=== PATIENT | female | born 1980 | race Caucasian/White ===

== ENCOUNTER 2017-01-22 07:12 | Day surgery (SDC) | payer OTHER ==
[~2017-01-22 07:12] MED LIST: Lactated Ringers 1,000 ML IV SCH; Sodium Chloride 0.9% 10 ML Syringe FLUSH PRN
[2017-01-22] MEDS ORDERED: fentaNYL 250 MCG/5 ML SDV ONE ×2 (07:30→08:11)
[2017-01-22] MEDS ORDERED: Midazolam 1 MG/ML 2 ML SDV ONE ×2 (07:30→08:11)
[2017-01-22] MEDS ORDERED: Propofol 200 MG/20 ML SDV ONE ×2 (07:31→08:11)
[2017-01-22] MEDS ORDERED: ceFAZolin 1 GM Vial ONE (08:11)
[2017-01-22] MEDS ORDERED: Ketorolac 30 MG/ML SDV ONE (08:11)
[2017-01-22] MEDS ORDERED: Ondansetron 4 MG/2 ML SDV ONE (08:11)
--- NOTE | 2017-01-22 08:17 | PCM.PN ---
- General Info Date of Service: 01/22/17 - Review of Systems Systems Review Comment:: 36-year-old female here for repair of umbilical hernia. She is medically stable to proceed with no recent significant change in her health status. The site of the hernia is confirmed with the patient and marked. I again discussed the proposed operative procedure with the patient. Expectations and anticipated postop restrictions or reviewed. She appears to understand and agrees to proceed accepting risks. - Patient Data Vitals - most recent: Last Vital Signs Temp 98.4 F 01/22/17 07:42 Pulse 62 01/22/17 07:42 Resp 20 01/22/17 07:42 BP 120/75 01/22/17 07:42 Pulse Ox 100 01/22/17 07:42 Weight - most recent: 47.627 kg Med Orders - Current: Current Medications Lactated Ringer's (Ringers, Lactated) 1,000 mls @ 125 mls/hr IV ASDIRECTED JACKY Last Admin: 01/22/17 07:50 Dose: 125 mls/hr Sodium Chloride (Saline Flush) 10 ml FLUSH ASDIRECTED PRN PRN Reason: Keep Vein Open Discontinued Medications Fentanyl (Sublimaze) Confirm Administered Dose 250 mcg .ROUTE .STK-MED ONE Stop: 01/22/17 07:31 Midazolam HCl (Versed 1 Mg/Ml) Confirm Administered Dose 2 mg .ROUTE .STK-MED ONE Stop: 01/22/17 07:31 Propofol (Diprivan 20 Ml) Confirm Administered Dose 600 mg .ROUTE .STK-MED ONE Stop: 01/22/17 07:32 - Problem List Review Problem List Initiated/Reviewed/Updated: Yes - My Orders Last 24 Hours: My Active Orders 01/22/17 07:00 Patient Status [ADT] Routine Peripheral IV Care [RC] . DIRECTED Verify Patient Consent Obtain [RC] ASDIRECTED Lactated Ringers [Ringers, Lactated] 1,000 ml IV ASDIRECTED Sodium Chloride 0.9% [Saline Flush] 10 ml FLUSH ASDIRECTED PRN Peripheral IV Insertion Adult [OM.PC] Routine - Assessment Assessment:: Umbilical Hernia - Plan Plan:: Umbilical Hernia Repair
[2017-01-22] MEDS ORDERED: Lidocaine 2% with EPINEPHrine 1:100,000 20 ML MDV INFILT ONE (08:29)
--- NOTE | 2017-01-22 09:26 | PCM.OPNOTE ---
- General Post-Op/Procedure Note Date of Surgery/Procedure: 01/22/17 Operative Procedure(s): Repair of umbilical hernia Findings: Small umbilical hernia with preperitoneal fat protruding through the defect Pre Op Diagnosis: Umbilical hernia Post-Op Diagnosis: Same Anesthesia Technique: Local, MAC Primary Surgeon: Ant Guzman Pathology: Umbilical hernia sac and contents Output, Urine Amount: 0 EBL in mLs: 10 Complications: None Condition: Good Free Text/Narrative:: Intake & Output 01/21/17 01/22/17 01/22/17 22:59 06:59 14:59 Intake Total 900 Balance 900
[2017-01-22 09:31] VITALS: BP 100/69
--- NOTE | 2017-01-22 11:45 | OR ---
Date of Procedure: 01/22/2017 PREOPERATIVE DIAGNOSIS: Umbilical hernia. POSTOPERATIVE DIAGNOSIS: Umbilical hernia. OPERATION PERFORMED: Umbilical herniorrhaphy. INDICATIONS FOR SURGERY: This 36-year-old female, who has developed an umbilical hernia which is increasingly symptomatic for her. She comes for elective repair. FINDINGS: At the superior border of the umbilicus, the patient has a fascial defect approximately 2 cm in size. Through this defect is protruding some preperitoneal fat. The surrounding fascia appears of good quality. PROCEDURE: The patient is taken to the operating room. She was given intravenous sedation and her abdomen was sterilely prepped with Betadine and draped. The periumbilical region was infiltrated with Xylocaine and Marcaine mix. A curvilinear incision is then made along the superior border of the umbilicus. Dissection proceeded down onto the underlying hernia sac which was carefully from the surrounding subcutaneous tissue and then sharply dissected free from the skin of the umbilicus which is dissected off the underlying fascia to allow full fascial exposure. The contents of the hernia were then examined and with no bowel being seen involved in the hernia, the hernia sac and contents were amputated at the level of the fascia above the clamps with ties of 3-0 Vicryl used to control the vascular pedicles. The remaining tissue was then reduced and the fascial edges were trimmed back to strong tissue with cautery. The fascial edges were then approximated in a transverse orientation with interrupted #1 Prolene using a Smead-Ahn suturing technique. This created a complete and secure closure of the fascial defect. Examination showed no sign of any complication. The wound was then irrigated. The skin of the umbilicus was tacked down to the underlying fascia with interrupted 3-0 Vicryl which was also used to reapproximate the subcutaneous tissue. The skin edges were approximated with a running 4-0 Vicryl subcuticular stitch, Steri-Strips, and benzoin. Antibiotic ointment, a sterile dressing was placed. The patient tolerated the procedure well and was taken from the operating room in satisfactory condition. ESTIMATED BLOOD LOSS: 10 mL. COMPLICATIONS: None. PROGNOSIS: Good. DARLYN Guzman MD /[id number]
== END 2017-01-22 11:14 | disposition home or self-care (01) ==
LOC: LL.SDS 07:12
PROVIDERS: ATTEND Surgery
DX: K42.9 Umbilical hernia without obstruction or gangrene (principal); O16.9 Unspecified maternal hypertension, unspecified trimester; Z88.2 Allergy status to sulfonamides; Z79.899 Other long term (current) drug therapy; Z98.890 Other specified postprocedural states
CPT/HCPCS: 49585; J7120; 00750; J0690; J1885; J2250; J2405; J2704; J3010

== ENCOUNTER 2019-08-17 11:31 | Emergency (ER) | payer BC, OTHER ==
[2019-08-17 12:34] LABS: CHLORIDE,CL 105 mmol/L (98-107); SODIUM,NA 141 mmol/L (136-145)
--- NOTE | 2019-08-17 13:03 | EDM.PDOC ---
ED HPI GENERAL MEDICAL PROBLEM - General Chief Complaint: Cardiovascular Problem Stated Complaint: racing heart, dizziness, increased weakness Time Seen by Provider: 08/17/19 11:52 Source of Information: Reports: Patient, Significant Other History Limitations: Reports: No Limitations - History of Present Illness INITIAL COMMENTS - FREE TEXT/NARRATIVE: Patient brought to ER due to apparent run of tachycardia that lasted several minutes while she was at work. She said heart was racing. Unable to take pulse. No accompanying chest pain/SOB. Did get anxious/tearful at time. Has had similar brief episodes lasting only 5-10 sec for at least the last 7 years. Had to wear event monitor and nothing recorded 7 years ago. No specific trigger for these. Sometimes has mild SOB with episodes. No history of heart issues diagnosed in past. Does have history of frequent headaches. Frequency improved over the last year when she started to increase her daily water intake. Is not on any supplements. Tries to eat healthy. Drinks caffeine. No energy drinks. Reports feeling chronically tired. No change in severity. Appetite is good. No weight changes. Does not report feelings of depression. - Related Data Allergies Allergy/AdvReac Type Severity Reaction Status Date / Time Sulfa (Sulfonamide Allergy Rash Verified 08/17/19 11:38 Antibiotics) Home Meds: Home Meds Acetaminophen [Tylenol Extra Strength] 1,000 mg PO Q4HR PRN 01/21/17 [History] Ibuprofen 200 mg PO ASDIRECTED PRN 01/21/17 [History] Past Medical History HEENT History: Reports: None Cardiovascular History: Reports: Other (See Below) Other Cardiovascular History: Hypertention occurred during Respiratory History: Reports: None Gastrointestinal History: Reports: Chronic Constipation, Hemorrhoids Genitourinary History: Reports: None [employer] History: Reports: , Spontaneous Musculoskeletal History: Reports: Other (See Below) Other Musculoskeletal History: Scoliosis. kyphoscollosis Neurological History: Reports: Headaches, Chronic Psychiatric History: Reports: None Endocrine/Metabolic History: Reports: None Hematologic History: Reports: None Immunologic History: Reports: None Oncologic (Cancer) History: Reports: None Dermatologic History: Reports: None - Past Surgical History Head Surgeries/Procedures: Reports: None Female Surgical History: Reports: Hysterectomy (Patient and think that she had hysterectomy after last .) - History Comment History Comment: Chronic feelings of fatigue Social & Family History - Tobacco Use Smoking Status *Q: Never Smoker Second Hand Smoke Exposure: Yes - Caffeine Use Caffeine Use: Reports: Coffee - Alcohol Use Alcohol Use History: Yes Alcohol Use Frequency: Rarely - Recreational Drug Use Recreational Drug Use: No - Living Situation & Occupation Living situation: Reports: , with Family Occupation: Employed ED ROS GENERAL - Review of Systems Review Of Systems: See Below Constitutional: Reports: Fatigue. Denies: Fever, Chills, Weakness, Diaphoresis , Decreased Appetite, Weight Loss HEENT: Reports: No Symptoms Respiratory: Reports: No Symptoms. Denies: Shortness of Breath Cardiovascular: Reports: Palpitations. Denies: Chest Pain, Dyspnea on Exertion , Edema, Lightheadedness, Syncope GI/Abdominal: Reports: No Symptoms : Reports: No Symptoms Musculoskeletal: Reports: No Symptoms Skin: Reports: No Symptoms Neurological: Reports: No Symptoms Psychiatric: Reports: No Symptoms Hematologic/Lymphatic: Reports: No Symptoms ED EXAM, GENERAL - Physical Exam Exam: See Below Exam Limited By: No Limitations General Appearance: Alert, WD/WN, No Apparent Distress, Anxious Eye Exam: Bilateral Eye: EOMI, PERRL Ears: Normal External Exam Nose: No: Nasal Deformity, Nasal Swelling, Nasal Drainage Throat/Mouth: Normal Lips, Normal Voice, No Airway Compromise Head: Atraumatic, Normocephalic Neck: Normal Inspection, Supple, Non-Tender, Full Range of Motion Respiratory/Chest: No Respiratory Distress, Lungs Clear, Normal Breath Sounds, No Accessory Muscle Use, Chest Non-Tender Cardiovascular: Regular Rate, Rhythm, No Edema, No Murmur GI/Abdominal: Normal Bowel Sounds, Soft, Non-Tender, No Distention (Female) Exam: Deferred Rectal (Female) Exam: Deferred Back Exam: Normal Inspection. No: CVA Tenderness (L), CVA Tenderness (R), Muscle Spasm, Paraspinal Tenderness, Vertebral Tenderness Extremities: Normal Inspection, Normal Range of Motion, Non-Tender, No Pedal Edema, Normal Capillary Refill Neurological: Alert, Oriented, CN II-XII Intact, Normal Cognition, Normal Gait, Normal Reflexes, No Motor/Sensory Deficits Psychiatric: Other (pleasant, somewhat flat affect) Skin Exam: Warm, Dry, Intact, Normal Color EKG INTERPRETATION EKG Date: 08/17/19 Time: 11:59 Rhythm: Other (Sinus rhythm with occasional PVC) Rate (Beats/Min): 72 Lyle: Normal P-Wave: Present QRS: Normal ST-T: Normal QT: Normal Comparison: NA - No Prior EKG Course - Vital Signs Last Recorded V/S: Last Vital Signs Temp 37.4 C 08/17/19 11:39 Pulse 85 08/17/19 11:39 Resp 18 08/17/19 11:39 BP 125/89 08/17/19 11:39 Pulse Ox 99 08/17/19 11:39 - Orders/Labs/Meds Orders: Active Orders 24 hr Category Date Time Status EKG Documentation Completion [RC] ASDIRECTED Care 08/17/19 11:54 Ordered UA W/MICROSCOPIC [URIN] Stat Lab 08/17/19 11:53 Ordered Labs: Laboratory Tests 08/17/19 08/17/19 08/17/19 Range/Units 12:05 12:05 12:05 WBC 8.7 (4.0-10.2) K/uL RBC 3.81 (3.77-5.09) M/uL Hgb 11.3 L (11.7-15.5) g/dL Hct 35.0 (34.0-46.0) % MCV 91.9 (84.0-98.0) fL MCH 29.7 (28.2-33.3) pg MCHC 32.3 (31.7-36.0) g/dL RDW 13.4 (11.2-14.1) % Plt Count 232 (150-350) K/uL Neut % (Auto) 82.6 H (45.0-80.0) % Lymph % (Auto) 12.5 (10.0-50.0) % Braxton % (Auto) 4.5 (2.0-14.0) % Eos % (Auto) 0.2 (0.0-5.0) % Baso % (Auto) 0.2 (0.0-2.0) % Neut # (Auto) 7.16 H (1.40-7.00) K/uL Lymph # (Auto) 1.08 (0.50-3.50) K/uL Braxton # (Auto) 0.39 (0.00-1.00) K/uL Eos # (Auto) 0.02 (0.00-0.50) K/uL Baso # (Auto) 0.02 (0.00-0.20) K/uL D-Dimer, Quantitative < 100 (0-400) ng/mL Sodium 141 (136-145) mmol/L Potassium 3.4 L (3.5-5.1) mmol/L Chloride 105 (98-107) mmol/L Carbon Dioxide 26.7 (21.0-32.0) mmol/L BUN 16 (7-18) mg/dL Creatinine 0.68 (0.51-1.17) mg/dL Est Cr Clr Drug Dosing TNP Estimated GFR (MDRD) > 60 mL/min Glucose 63 L (74-106) mg/dL Calcium 8.7 (8.5-10.1) mg/dL Magnesium 1.7 L (1.8-2.4) mg/dL Total Bilirubin 0.5 (0.2-1.0) mg/dL AST 24 (15-37) U/L ALT 26 (12-78) U/L Alkaline Phosphatase 45 L (46-116) IU/L Troponin I 0.000 (0.000-0.056) ng/mL Total Protein 7.2 (6.4-8.2) g/dL Albumin 3.8 (3.4-5.0) g/dL TSH, Ultra Sensitive 0.815 (0.358-3.740) mIU/mL - Re-Assessments/Exams Free Text/Narrative Re-Assessment/Exam: Patient asymptomatic upon arrival. CBC/Chem/MG/Trop/TSH/DDimer obtained. Noted to have mild decrease in Mg and K. Blood sugar 63. No accompanying hypoglycemic complaints. Lab results shared with patient and . She did admit to having simple carb breakfasts/donuts daily. It was recommended that she include protein and health fat in her breakfast regimen to promote stable blood sugars. panel monitor continued to show PVCs, approx 5-6 per minute. No additional acute intervention indicated at this time. Patient continued to be stable/asymptomatic. Dietary modifications recommended, including supplemental Mg/VitD/Fish Oil/ multi vitamin. Increase in potassium rich foods. To make appointment to follow up with [facility] regarding continued workup for suspected SVT. Would benefit from event monitor with Cardiology follow up . She is also to discuss having baseline CT or MRI of head given her history of headaches and fact that her mother had acute brain aneurysm at approx same age of patient. Recommended to cut back on caffeine as it can affect SVT frequency. Precautions reviewed prior to discharge. To follow up as needed acutely in ER as needed for problems/worsening symptoms. Departure - Departure Time of Disposition: 12:44 Disposition: Home, Self-Care 01 Condition: Good Clinical Impression: Racing heart beat, Asymptomatic PVCs Instructions: Premature Ventricular Contraction Referrals: Sintia Barahona PA-C [Primary Care Provider] - Forms: ED Department Discharge Additional Instructions: Call and make follow up appointment at your chosen primary clinic. Discuss having a Holter Monitor/event monitor to record any episodes of racing heart beat. Prefer 3-4 weeks of wearing the monitor vs a few days. Discuss having a baseline MRI to investigate the headaches in conjunction with family history of due to brain aneurysm. Recommend having B12/Folate levels checked, also Vit D levels given history of chronic fatigue. Get referral to Cardiology to discuss the PVCs/Holter monitor results. Follow up otherwise as needed if you have worsening problems. Recommended to start Vit D/Multivitamin/Magnesium supplement. Also to increase K rich foods. Sepsis Event Note - Evaluation Sepsis Screening Result: No Definite Risk - Focused Exam Vital Signs: Vital Signs Temp Pulse Resp BP Pulse Ox 08/17/19 11:39 37.4 C 85 18 125/89 99 Date Exam was Performed: 08/17/19 Time Exam was Performed: 13:12 - My Orders Last 24 Hours: My Active Orders 08/17/19 11:53 UA W/MICROSCOPIC [URIN] Stat 08/17/19 11:54 EKG Documentation Completion [RC] ASDIRECTED - Assessment/Plan Last 24 Hours: My Active Orders 08/17/19 11:53 UA W/MICROSCOPIC [URIN] Stat 08/17/19 11:54 EKG Documentation Completion [RC] ASDIRECTED
[2019-08-17 14:21] VITALS: BP 120/83; PULSE 65
== END 2019-08-17 13:15 | disposition home or self-care (01) ==
LOC: LL.ED 11:31
DX: I49.3 Ventricular premature depolarization (principal); Z88.2 Allergy status to sulfonamides
CPT/HCPCS: 36415; 80053; 83735; 84443; 84484; 85025; 85379; 93005; 99285-25